=== PATIENT | male | born 1955 | race American Indian/Alaskan Native ===

== ENCOUNTER 2021-05-04 10:13 | Emergency (ER) | payer SELFPAY ==
[2021-05-04 10:32] VITALS: BP 152/93
[2021-05-04] MEDS ORDERED: SODIUM CHLORIDE 0.9% 1000 ML 1,000 ML IV ONE (11:41)
[2021-05-04] MEDS ORDERED: MORPHINE 2 MG/1 ML INJ IV ONE (11:42)
--- NOTE | 2021-05-04 11:42 | Emergency Department Report ---
ED Male HPI - General Chief complaint: Nausea/Vomiting/Diarrhea Stated complaint: HERNIA PAIN Time Seen by Provider: 05/04/21 11:27 Source: patient Mode of arrival: Ambulatory Limitations: No Limitations - History of Present Illness Initial comments: 65-year-old male presents to the ER today complaint of right inguinal/groin and right testicular pain. Patient is a very vague historian. Patient states that he had right inguinal hernia repair in 2018. He states that has been having pain in the area off and on since the surgery but 1 week ago the pain got worse. He denies any apparent swelling in that area. He states that it has been a constant pain and he also reports associated constipation x1 week. He denies any nausea or vomiting. He denies any dysuria penile discharge or hematuria. He denies any bruising or redness to his groin or testicular area. He states that he is concerned that his pain could be related to another hernia. He had the surgery done in [facility]. He has not seen that particular surgeon since the surgery. MD Complaint: testicle pain, hernia, groin pain -: year(s) (since 2018 but worse 1 week ago ) - Related Data Previous Rx's Medication Instructions Recorded Last Taken Type HYDROcodone/APAP 5-325 [[place] 1 each PO Q6HR PRN #12 tablet 05/04/21 Unknown Rx 5/325] Allergies Allergy/AdvReac Type Severity Reaction Status Date / Time No Known Allergies Allergy Verified 05/04/21 10:19 ED Review of Systems ROS: Stated complaint: HERNIA PAIN Other details as noted in HPI Comment: All other systems reviewed and negative Constitutional: denies: chills, fever Eyes: denies: eye pain, eye discharge, vision change ENT: denies: ear pain, throat pain Respiratory: denies: cough, shortness of breath, SOB with exertion, SOB at rest, wheezing Cardiovascular: denies: chest pain, palpitations, dyspnea on exertion, orthopnea, syncope, paroxysmal nocturnal dyspnea Gastrointestinal: constipation, other (Right inguinal pain). denies: abdominal pain, nausea, vomiting, diarrhea, hematemesis, melena Genitourinary: testicular pain. denies: urgency, dysuria, frequency, hematuria, discharge, testicular mass Skin: denies: rash, lesions, change in color, change in hair/nails, pruritus Neurological: denies: headache, weakness, numbness, paresthesias, confusion, abnormal gait, vertigo Psychiatric: denies: anxiety, depression, auditory hallucinations, visual hallucinations, homicidal thoughts, suicidal thoughts Hematological/Lymphatic: denies: easy bleeding, easy bruising, swollen glands ED Past Medical Hx - Medications Home Medications: Home Medications Medication Instructions Recorded Confirmed Last Taken Type HYDROcodone/APAP 5-325 [[place] 1 each PO Q6HR PRN #12 tablet 05/04/21 Unknown Rx 5/325] ED Physical Exam - General Limitations: No Limitations General appearance: alert, in no apparent distress - Head Head exam: Present: atraumatic, normocephalic - Eye Eye exam: Present: normal appearance, PERRL, EOMI Pupils: Present: normal accommodation - ENT ENT exam: Present: normal exam, mucous membranes moist - Neck Neck exam: Present: normal inspection, full ROM - Respiratory Respiratory exam: Present: normal lung sounds bilaterally. Absent: respiratory distress, wheezes, rales, rhonchi - Cardiovascular Cardiovascular Exam: Present: regular rate, normal rhythm, normal heart sounds - GI/Abdominal GI/Abdominal exam: Present: soft. Absent: distended, tenderness, guarding, rebound - exam: Present: testicular tenderness (Right testicular tenderness), other (Ict Educator was present at the time of my exam). Absent: urethral discharge, scrotal swelling External exam: Present: swelling (Mild swelling/fullness noted to the right inguinal area, but no obvious hernia noted). Absent: erythema, lesions, lacerations, ecchymosis, bleeding - Neurological Exam Neurological exam: Present: alert, oriented X3, CN II-XII intact, normal gait - Psychiatric Psychiatric exam: Present: normal affect, normal mood - Skin Skin exam: Present: intact ED Course Vital Signs 05/04/21 10:20 Temperature 97.7 F Pulse Rate 76 Respiratory 20 Rate Blood Pressure 152/93 O2 Sat by Pulse 98 Oximetry ED Medical Decision Making - Lab Data Result diagrams: 05/04/21 11:55 05/04/21 11:55 - Radiology Data Radiology results: report reviewed Patient: VICENTE VILLANUEVA MR#: [id number] : 1955 Acct:[id number] Age/Sex: 65 / M ADM Date: 05/04/21 Loc: ED Attending Dr: Ordering Physician: IGNACIA RODRIGUEZ Date of Service: 05/04/21 Procedure(s): US testicular doppler comp Accession Number(s): [id number] cc: IGNACIA RODRIGUEZ ULTRASOUND SCROTUM INDICATION / CLINICAL INFORMATION: Right testicular pain. COMPARISON: None available. FINDINGS -- RIGHT: TESTIS: Size = 4 cm. - Appearance: No significant abnormality. - Cyst / Mass: None. - Color Doppler Flow: No significant abnormality. EPIDIDYMIS: No significant abnormality. HYDROCELE: small VARICOCELE: None demonstrated. FINDINGS -- LEFT: TESTIS: Size = 4 cm. - Appearance: No significant abnormality. - Cyst / Mass: None. - Color Doppler Flow: No significant abnormality. EPIDIDYMIS: No significant abnormality. HYDROCELE: Small None. VARICOCELE: None demonstrated. ADDITIONAL FINDINGS: None. IMPRESSION:Small hydroceles. Signer Name: Mac Swain MD Signed: 05/04/2021 1:30 PM Workstation Name: [id number] Transcribed By: ES Dictated By: Mac Swain MD Electronically Authenticated By: Mac Swain MD Signed Date/Time: 05/04/21 1330 DD/ 1329 TD/TT: Patient: VICENTE VILLANUEVA MR#: [id number] : 1955 Acct:[id number] Age/Sex: 65 / M ADM Date: 05/04/21 Loc: ED Attending Dr: Ordering Physician: IGNACIA RODRIGUEZ Date of Service: 05/04/21 Procedure(s): CT abdomen pelvis w con Accession Number(s): [id number] cc: IGNACIA RODRIGUEZ CT ABDOMEN AND PELVIS WITH CONTRAST INDICATION: Right groin pain/hx hernia. TECHNIQUE: Axial CT images were obtained through the abdomen and pelvis after 100 cc IV contrast. All [address] scans at this location are performed using CT dose reduction for ALARA by means of automated e xposure control. COMPARISON: None available. FINDINGS: LOWER CHEST: No significant abnormality. LIVER: Several tiny subcentimeter hypodense liver lesion is too small to c haracterize likely representing cysts GALLBLADDER: No significant abnormality. BILE DUCTS: No significant abnormality. PANCREAS: No significant abnormality. SPLEEN: No significant abnormality. ADRENALS: No significant abnormality. RIGHT KIDNEY and URETER: No significant abnormality. LEFT KIDNEY and URETER: No significant abnormality. STOMACH and SMALL BOWEL: No significant abnormality. COLON: No significant abnormality. APPENDIX: No significant abnormality. PERITONEUM: No free fluid. No free air. No fluid collection. LYMPH NODES: No significant adenopathy. AORTA and ARTERIES: No significant abnormality. IVC and VEINS: No significant abnormality. URINARY BLADDER: No significant abnormality. REPRODUCTIVE ORGANS: No significant abnormality. ADDITIONAL FINDINGS: None. SKELETAL SYSTEM: No significant abnormality. IMPRESSION: 1. No significant abnormality. Signer Name: Alexei Perales MD Signed: 05/04/2021 2:01 PM Workstation Name: [id number] Transcribed By: TL Dictated By: Alexei Perales MD Electronically Authenticated By: Alexei Perales MD Signed Date/Time: 05/04/21 1401 DD/ 1358 TD/TT: Critical care attestation.: If time is entered above; I have spent that time in minutes in the direct care of this critically ill patient, excluding procedure time. ED Disposition Clinical Impression: Right groin pain, Right testicular pain, Hydrocele Disposition: TO HOME OR SELFCARE Is pt being admited?: No Does the pt Need Aspirin: No Condition: Stable Instructions: Hydrocele, Adult, Testicular Self-Exam, [id number], Pain Without a Known Cause Additional Instructions: Recommend that you take the hydrocodone as needed for pain. It is also important that you follow-up with the urologist listed on your discharge instructions. Return to the ER if your symptoms changes or worsens in any way. Prescriptions: HYDROcodone/APAP 5-325 [[place] 5/325] 1 each PO Q6HR PRN #12 tablet PRN Reason: Pain Referrals: YUDELKA ESPARZA MD [Staff Physician] - 3-5 Days Time of Disposition: 16:43
[2021-05-04 12:20] LABS: Basophils % (Auto) 0.6 % (0.0-1.8); Eosinophils # (Auto) 0.3 K/mm3 (0.0-0.4); Eosinophils % (Auto) 4.9 % (0.0-4.3); Hematocrit 45.9 % (35.5-45.6); Lymphocytes # (Auto) 1.5 K/mm3 (1.2-5.4); Lymphocytes % (Auto) 25.5 % (13.4-35.0); Mean Corpuscular HGB Conc 35 % (32-34); Mean Corpuscular Volume 93 fl (84-94); Monocytes # (Auto) 0.4 K/mm3 (0.0-0.8); Monocytes % (Auto) 6.5 % (0.0-7.3); Platelet Count 224 K/mm3 (140-440); Red Blood Count 4.95 M/mm3 (3.65-5.03); Red Cell Distribution Width 13.4 % (13.2-15.2)
[2021-05-04 12:36] LABS: Alanine Aminotransferase 21 units/L (7-56); Albumin 4.4 g/dL (3.9-5); Blood Urea Nitrogen 14 mg/dL (9-20); Calcium 9.1 mg/dL (8.4-10.2); Hemolysis Index 30
[2021-05-04 12:47] LABS: BUN/Creatinine Ratio 20; Bilirubin,Direct < 0.2 mg/dL (0-0.2)
--- NOTE | 2021-05-04 13:35 | Ultrasound Report ---
ULTRASOUND SCROTUM INDICATION / CLINICAL INFORMATION: Right testicular pain. COMPARISON: None available. FINDINGS -- RIGHT: TESTIS: Size = 4 cm. - Appearance: No significant abnormality. - Cyst / Mass: None. - Color Doppler Flow: No significant abnormality. EPIDIDYMIS: No significant abnormality. HYDROCELE: small VARICOCELE: None demonstrated. FINDINGS -- LEFT: TESTIS: Size = 4 cm. - Appearance: No significant abnormality. - Cyst / Mass: None. - Color Doppler Flow: No significant abnormality. EPIDIDYMIS: No significant abnormality. HYDROCELE: Small None. VARICOCELE: None demonstrated. ADDITIONAL FINDINGS: None. IMPRESSION:Small hydroceles. Signer Name: Mac Swain MD Signed: 05/04/2021 1:30 PM Workstation Name: [id number]
--- NOTE | 2021-05-04 14:06 | Cat Scan Report ---
CT ABDOMEN AND PELVIS WITH CONTRAST INDICATION: Right groin pain/hx hernia. TECHNIQUE: Axial CT images were obtained through the abdomen and pelvis after 100 cc IV contrast. All CT scans at this location are performed using CT dose reduction for ALARA by means of automated exposure contr ol. COMPARISON: None available. FINDINGS: LOWER CHEST: No significant abnormality. LIVER: Several tiny subcentimeter hypodense liver lesion is too small to characterize likely represen ting cysts GALLBLADDER: No significant abnormality. BILE DUCTS: No significant abnormality. PANCREAS: No significant abnormality. SPLEEN: No significant abnormality. ADRENALS: No significant abnormality. RIGHT KIDNEY and URETER: No significant abnormality. LEFT KIDNEY and URETER: No significant abnormality. STOMACH and SMALL BOWEL: No significant abnormality. COLON: No significant abnormality. APPENDIX: No significant abnormality. PERITONEUM: No free fluid. No free air. No fluid collection. LYMPH NODES: No significant adenopathy. AORTA and ARTERIES: No significant abnormality. IVC and VEINS: No significant abnormality. URINARY BLADDER: No significant abnormality. REPRODUCTIVE ORGANS: No significant abnormality. ADDITIONAL FINDINGS: None. SKELETAL SYSTEM: No significant abnormality. IMPRESSION: 1. No significant abnormality. Signer Name: Alexei Perales MD Signed: 05/04/2021 2:01 PM Workstation Name: [id number]
[2021-05-04 16:08] LABS: Bilirubin,Urine NEG (Negative); Blood,Urine NEG (Negative); Color,Urine Colorless (Yellow); Protein,Urine <15 mg/dL mg/dL (Negative); RBC,Urine < 1.0 /HPF (0.0-6.0); Urobilinogen,Urine < 2.0 mg/dL (<2.0)
== END 2021-05-04 17:10 | disposition home or self-care (01) ==
LOC: ED 10:13
DX: N43.3 Hydrocele, unspecified (principal); N50.811 Right testicular pain; Z79.899 Other long term (current) drug therapy
CPT/HCPCS: 36415; 74177; 80048; 80076; 81001; 83690; 85025; 93975; 96361; 96374; 99284; J2270; J7030; Q9967

== ENCOUNTER 2021-10-07 11:02 | Emergency (ER) | payer MEDICARE ==
--- NOTE | 2021-10-07 12:58 | Emergency Department Report ---
ED General Adult HPI - General Chief complaint: Pain General Stated complaint: My groin is dry. It feels like my hernia is pushing out PUI?: No Time Seen by Provider: 10/07/21 12:46 Source: patient, RN notes reviewed, old records reviewed Mode of arrival: Ambulatory Limitations: No Limitations - History of Present Illness Initial comments: The patient was evaluated in the emergency department for symptoms described in the history of present illness. He/she was evaluated in the context of the global COVID-19 pandemic, which necessitated consideration that the patient might be at risk for infection with the virus that causes COVID-19. Institutional protocols and algorithms that pertain to the evaluation of patients at risk for COVID-19 are in a state of rapid change based on information released by regulatory bodies including the CDC and federal and state organizations. These policies and algorithms were followed during the patient's care in the emergency department. Please note that these policies, procedures and recommendations changed on a rapid basis. The patient is a 65-year-old gentleman, who reports a history of elective inguinal hernia repair 4 years ago in [place], who presents to the ER today with a primary complaint of dry groin, and right genitals, without testicular pain, abdominal pain, or groin pain, and a secondary complaint of pressure/pushing sensation over the site of his inguinal hernia repair. He is defecating and passing gas. Denies headache, neck pain, chest pain, abdominal pain, shortness of breath, nausea, vomiting or diarrhea, testicular pain, dysuria. -: Gradual, hour(s), days(s) Location: abdomen (Right inguinal region) Consistency: intermittent Improves with: none Worsens with: none Associated Symptoms: denies other symptoms - Related Data Previous Rx's Medication Instructions Recorded Last Taken Type HYDROcodone/APAP 5-325 [[place] 1 each PO Q6HR PRN #12 tablet 05/04/21 Unknown Rx 5/325] Allergies Allergy/AdvReac Type Severity Reaction Status Date / Time No Known Allergies Allergy Verified 05/04/21 10:19 ED Review of Systems ROS: Stated complaint: DRYNESS IN GENITAL AREA Other details as noted in HPI Constitutional: denies: fever Eyes: denies: eye discharge ENT: denies: epistaxis Respiratory: denies: cough Cardiovascular: denies: chest pain Gastrointestinal: denies: nausea, vomiting, constipation Genitourinary: denies: testicular pain Neurological: denies: weakness ED Past Medical Hx - Past Medical History Previous Medical History?: No - Surgical History Past Surgical History?: No - Medications Home Medications: Home Medications Medication Instructions Recorded Confirmed Last Taken Type HYDROcodone/APAP 5-325 [[place] 1 each PO Q6HR PRN #12 tablet 05/04/21 Unknown Rx 5/325] ED Physical Exam - General Limitations: No Limitations General appearance: alert, in no apparent distress - Head Head exam: Present: atraumatic, normocephalic - Eye Eye exam: Present: normal appearance, EOMI. Absent: nystagmus - ENT ENT exam: Present: normal exam, normal orophraynx, mucous membranes moist, simi l external ear exam - Neck Neck exam: Present: normal inspection, full ROM. Absent: tenderness, meningismus - Respiratory Respiratory exam: Present: normal lung sounds bilaterally. Absent: respiratory distress, wheezes, rales, rhonchi, stridor, decreased breath sounds - Cardiovascular Cardiovascular Exam: Present: regular rate, normal rhythm, normal heart sounds. Absent: bradycardia, tachycardia, irregular rhythm, systolic murmur, diastolic murmur, rubs, gallop - GI/Abdominal GI/Abdominal exam: Present: soft, normal bowel sounds, hernia (There is a nontender reducible right-sided inguinal hernia noted). Absent: distended, tenderness, guarding, rebound, rigid, pulsatile mass - Rectal Rectal exam: Present: deferred - exam: Present: normal inspection (Patient provides consent for external genital exam), other (There is normal testicular lie. There is normal cremasteric reflex. There is no testicular tenderness. There is no testicular swelling). Absent: testicular tenderness External exam: Absent: normal external exam - Extremities Exam Extremities exam: Present: normal inspection, full ROM, other (2+ pulses noted in the bilateral upper and lower extremities. There is no palpable cord. negative Homans sign. Muscular compartments are soft. The pelvis is stable.). Absent: pedal edema, calf tenderness - Back Exam Back exam: Present: normal inspection, full ROM. Absent: tenderness, CVA tenderness (R), CVA tenderness (L), paraspinal tenderness, vertebral tenderness - Neurological Exam Neurological exam: Present: alert, oriented X3, other (No facial droop. Tongue midline. Extraocular movements intact bilaterally. Facial sensation intact to light touch in V1, V2, V3 distribution bilaterally. 5 and a 5 strength in 4 extremities. Sensation intact to light touch in 4 extremities.). Absent: motor sensory deficit - Psychiatric Psychiatric exam: Present: normal affect, normal mood - Skin Skin exam: Present: warm, dry, intact, normal color. Absent: rash ED Course Vital Signs 10/07/21 10/07/21 12:41 13:44 Temperature 98 F 98.0 F Pulse Rate 70 69 Respiratory 16 18 Rate Blood Pressure 193/86 189/103 [Left] O2 Sat by Pulse 100 97 Oximetry ED Medical Decision Making - Lab Data Vital Signs 10/07/21 12:41 Temperature 98 F Pulse Rate 70 Respiratory 16 Rate Blood Pressure 193/86 [Left] O2 Sat by Pulse 100 Oximetry - Radiology Data Radiology results: pending, report reviewed, image reviewed Prior CT scan and ultrasound reviewed and appreciated - Medical Decision Making Differential diagnosis, including but not limited to: Reducible right-sided inguinal hernia, chronic hypertension Assessment and plan: 65-year-old gentleman, who was afebrile, with reassuring vital signs with exception of chronically elevated blood pressure (please reference the [employer] clinical policy on asymptomatic elevated blood pressure), presenting to the ER today with a complaint of recurrent right-sided inguinal hernia which is reducible, nontender, and dryness to the genital area, without complaint of testicular pain, or urinary symptoms. His physical examination is unremarkable and he is nontender. He is defecating and experiencing flatus. Bowel sounds normal. Outpatient follow-up. Diet and lifestyle modifications. Follow-up with primary care for elevated blood pressure/hypertension. Return precautions reviewed. All questions answered Critical care attestation.: If time is entered above; I have spent that time in minutes in the direct care of this critically ill patient, excluding procedure time. ED Disposition Clinical Impression: Inguinal hernia, right, Elevated blood pressure reading Disposition: HOME / SELF CARE / HOMELESS Is pt being admited?: No Does the pt Need Aspirin: No Condition: Good Instructions: Inguinal Hernia, Adult, [id number], Hypertension, Adult, [id number] Additional Instructions: The patient should follow-up with a general surgeon, such as Dr. Marie, for his recurrent right-sided inguinal hernia, within the next 5 to 7 days. Please drink at least 4 to 5 cups of water per day, and consume plenty of fiber, vegetables, lean protein, and avoid consumption of processed foods. The patient should continue outpatient blood pressure medications, if he takes them, and should also follow-up with an outpatient primary care doctor for hypertension/elevated blood pressure, such as Dr. Akin Araiza, within the next 2 to 4 weeks. Long-term complications of hypertension and elevated blood pressure include stroke, heart attack, disability, paralysis and loss of quality of life. The patient should exercise as tolerated, and pursue the aforementioned diet and lifestyle modifications. Please return to the emergency room right away with new pain, worsened pain, migration of pain, projectile vomiting, change in mental status, confusion, inability tolerate liquid feeds, new, worsened or different symptoms not present on the initial emergency room evaluation Referrals: BLAIR MARIE MD [Staff Physician] - 3-5 Days SHANDA ARAIZA MD [Staff Physician] - 3-5 Days
[2021-10-07 13:47] VITALS: BP 189/103
== END 2021-10-07 15:00 | disposition home or self-care (01) ==
LOC: ED 11:02
DX: K40.91 Unilateral inguinal hernia, without obstruction or gangrene, recurrent (principal); R03.0 Elevated blood-pressure reading, without diagnosis of hypertension
CPT/HCPCS: 99282